=== PATIENT | male | born 1990 | race American Indian/Alaskan Native ===

== ENCOUNTER 2017-07-17 10:27 | Emergency (ER) | payer MEDICAID, OTHER ==
[2017-07-17 10:45] VITALS: BMI 37.3
--- NOTE | 2017-07-17 11:45 | ED PDOC ---
Lower Extremity Pain/Injury Time Seen by Provider: 07/17/17 10:50 Chief Complaint (Nursing): Lower Extremity Problem/Injury Chief Complaint (Provider): Right calf pain, 3 days History Per: Patient History/Exam Limitations: no limitations Onset/Duration Of Symptoms: Days Current Symptoms Are (Timing): Still Present Severity: Moderate Pain Scale Rating Of: 6 Additional Complaint(s): PT reports right posterior calf pain for 3 days. Pt states the pain is the worst when trying to walk. PT states he thinks someone might have kicked his leg when he was playing basketball but is not sure. No similar in the past. Past Medical History Reviewed: Historical Data, Nursing Documentation, Vital Signs - Medical History PMH: No Chronic Diseases - Surgical History Surgical History: No Surg Hx - Family History Family History: States: No Known Family Hx - Home Medications Home Medications: Ambulatory Orders Medication Instructions Recorded Ibuprofen [Motrin Tab] 800 mg PO Q6H PRN #20 tab 07/17/17 - Allergies Allergies/Adverse Reactions: Allergies Allergy/AdvReac Type Severity Reaction Status Date / Time No Known Allergies Allergy Verified 07/17/17 10:44 Review of Systems ROS Statement: Except As Marked, All Systems Reviewed And Found Negative Constitutional: Negative for: Fever, Chills Musculoskeletal: Positive for: Leg Pain Physical Exam - Reviewed Nursing Documentation Reviewed: Yes Vital Signs Reviewed: Yes - Physical Exam Appears: Positive for: Well, Non-toxic, No Acute Distress Head Exam: Positive for: ATRAUMATIC, NORMAL INSPECTION, NORMOCEPHALIC Skin: Positive for: Warm. Negative for: Normal Color (Ecchymosis, right foot ) Eye Exam: Positive for: Normal appearance ENT: Positive for: Normal ENT Inspection Neck: Positive for: Normal, Painless ROM Respiratory: Negative for: Accessory Muscle Use, Respiratory Distress Back: Positive for: Normal Inspection Extremity: Positive for: Normal ROM, Tenderness, Calf Tenderness, Capillary Refill (< 3 seconds ), Swelling Neurologic/Psych: Positive for: Alert, Oriented Medical Decision Making Medical Decision Making: x-ray and US normal. Pt reports feeling better on re-evaluation after motrin Disposition - Clinical Impression Clinical Impression: Calf pain Counseled Patient/Family Regarding: Diagnosis, Need For Followup - Disposition Disposition: Routine/Home Disposition Time: 12:47 Condition: GOOD Prescriptions: Ibuprofen [Motrin Tab] 800 mg PO Q6H PRN #20 tab PRN Reason: Pain Instructions: Musculoskeletal Pain (ED)
--- NOTE | 2017-07-17 12:06 | RAD ---
PROCEDURE: Right tibia/fibula dated 07/17/2027 HISTORY: Right calf pain. COMPARISON: None available. TECHNIQUE: Frontal and lateral views obtained. FINDINGS: BONES: No fracture or destructive lesion. JOINT SPACES: Joint spaces preserved. No evidence of significant osteoarthritis. OTHER FINDINGS: No subcutaneous air. No radiopaque foreign body IMPRESSION: Unremarkable radiographs of the right tibia and fibula.
--- NOTE | 2017-07-17 12:32 | US ---
PROCEDURE: Right lower extremity venous duplex Doppler. HISTORY: right calf pain COMPARISON: None available. TECHNIQUE: Common femoral, superficial femoral, popliteal and posterior tibial veins were evaluated. Flow was assessed with color Doppler, compressibility, assessment of phasic flow and augmentation response. FINDINGS: COMMON FEMORAL VEIN: Unremarkable. SUPERFICIAL FEMORAL VEIN: Unremarkable. POPLITEAL VEIN: Unremarkable. POSTERIOR TIBIAL VEIN: Unremarkable. OTHER FINDINGS: There appears be small irregular area of subcutaneous edema right calf. Right inguinal lymph node measuring approximately 3.9 by 10.5 mm. IMPRESSION: No evidence of deep venous thrombosis in the right lower extremity. Suspect small area of subcutaneous edema right calf.
[2017-07-17 13:26] VITALS: BP 136/78; PULSE 80; RESP 18; TEMP 97; O2SAT 98
== END 2017-07-17 13:26 | disposition home or self-care (01) ==
LOC: H.ER 10:27
DX: M79.604 Pain in right leg (principal)